=== PATIENT | male | born 1935 | race Caucasian/White ===

== ENCOUNTER 2020-04-07 07:49 | Emergency (ER) | payer MEDICARE, SELFPAY ==
--- NOTE | ~2020-04-07 | XR_ITS ---
EXAMINATION: XR knee RT min 4V DATE: 04/07/2020 08:34 INDICATION: Right knee pain TECHNIQUE: Four views of the right knee were obtained. COMPARISON: None. FINDINGS: Alignment is normal. No fracture or osteochondral lesion. There is mild tricompartmental os teoarthritis characterized by tiny marginal osteophytes. A moderate size knee joint effusion is prese nt. Soft tissues are unremarkable. IMPRESSION: 1. No acute osseous abnormality. Reviewed, dictated and finalized at location A. ING MACHINE OPERATOR
--- NOTE | ~2020-04-07 | CT_ITS ---
EXAMINATION: CT brain wo con INDICATION: Head injury COMPARISON: None TECHNIQUE: Standard unenhanced head CT. The dose-length product (DLP) was 605.33 mGy-cm. The mA was a djusted according to patient size. Iterative reconstruction technique was employed. FINDINGS: There is no acute intraparenchymal hemorrhage. No evidence of mass lesion. No evidence of a cute infarction. There is mild periventricular and subcortical hypodensity probably related to small vessel ischemic disease. There is mild prominence of the sulci and ventricles related to cerebral atr ophy. Intracranial calcified cerebral atherosclerosis is noted. There are no extra-axial collections. There is no mass effect or midline shift. Changes in the globes are likely from ocular lens surgery. The visualized sinuses and mastoid air cells are well aerated. IMPRESSION: 1. No acute intracranial abnormality. 2. Age related findings. Reviewed, dictated and finalized at location A. ENER
--- NOTE | ~2020-04-07 | XR_ITS ---
EXAMINATION: XR elbow RT min 3V INDICATION: Right elbow pain TECHNIQUE: Four views of the right elbow are obtained. 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 No fracture is identified. Bone alignment is normal. IMPRESSION: 1. No acute osseous abnormality. Reviewed, dictated and finalized at location A. TATION ENGINEER
--- NOTE | ~2020-04-07 | CT_ITS ---
EXAMINATION: CT cervical spine wo con DATE: 04/07/2020 08:48 INDICATION: Head injury TECHNIQUE: Computed tomography (CT) of the cervical spine was performed without intravenous contrast. The dose-length product (DLP) was 455.29 mGy-cm. Automated exposure control and iterative reconstruc tion technique were employed. COMPARISON: None FINDINGS: There is no fracture. There are 2 mm of retrolisthesis of C4 on C5 and 2 mm of anterolisthe sis of C6 on C7. The vertebral body heights are maintained. There is advanced loss of intervertebral disc space height from C3-4 through C5-6. The odontoid is intact. Small degenerative osteophytes proj ect from the anterior endplates of multiple vertebral bodies. 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 There are small lucencies in the odontoid and multiple vertebral garrett dies which likely relate to osteoarthritis. IMPRESSION: 1. Severe cervical spondylosis without acute osseous abnormality. Reviewed, dictated and finalized at location A. E GOODS APPLIANCE TECH
--- NOTE | ~2020-04-07 | XR_ITS ---
EXAMINATION: XR hip BI 2V w AP pelvis DATE: 04/07/2020 08:34 INDICATION: Pain after fall TECHNIQUE: AP view the pelvis and two views of each hip were obtained. COMPARISON: None. FINDINGS: Bone alignment is normal. There is no fracture. Surgical changes are noted in the left pelv is. There is calcified atherosclerosis. Mild hip osteoarthritis is noted. IMPRESSION: 1. No acute osseous abnormality. Reviewed, dictated and finalized at location A. ROL PANEL BUILDER
--- NOTE | ~2020-04-07 | CT_ITS ---
EXAMINATION: CT pelvis wo con DATE: 04/07/2020 09:43 INDICATION: Right hip pain after fall TECHNIQUE: Computed tomography (CT) of the pelvis was performed without intravenous contrast. The dos e-length product (DLP) was 294.77 mGy-cm. Automated exposure control and iterative reconstruction tariq hnique were employed. COMPARISON: None FINDINGS: There is a subtle nondisplaced fracture involving the lower left sacrum. No additional acut e osseous abnormality is identified. There is mild osteoarthritis of the hips. There are surgical jass nges of left inguinal hernia repair. There is calcified atherosclerosis of the aorta and many of the other arteries. No pathologically enlarged pelvic lymph nodes are identified. IMPRESSION: 1. Subtle nondisplaced fracture involving the lower left sacrum. Reviewed, dictated and finalized at location A. ATRIC SOCIAL WORKER
[2020-04-07 07:52] VITALS: BP 124/58; PULSE 65; RESP 16; TEMP 36.2; O2SAT 98
--- NOTE | 2020-04-07 08:10 | ED.FALL ---
HPI - Fall General Chief Complaint: Fall Stated Complaint: Fall yesterday, R hhip pain Time Seen by Provider: 04/07/20 07:55 Source: patient and family Mode of arrival: ambulatory Limitations: dementia History of Present Illness HPI Narrative: This patient is an 84 year old male with history of dementia who presents for evaluation of right hip pain s/p fall. His daughter states he was walking down steps when he lost his footing . He fell off the stairs at the 4th step, and she states he fell onto his right hip . She also reports he hit his head but she denies LOC. She reports they have been giving him tramadol so he denies headache currently. Patient has been ambulating with a limp since the fall. He has an abrasion to right elbow and right knee. He reports mild neck pain but his daughter reports he has chronic neck pain. She denies any other pain. complaint: fall Related Data Home Medications Medication Instructions Recorded Confirmed donepezil 5 mg tablet 5 mg PO ONCE 03/19/20 03/19/20 quetiapine 25 mg tablet 25 mg PO BID 03/19/20 03/19/20 Allergies Allergy/AdvReac Type Severity Reaction Status Date / Time No Known Allergies Allergy Unverified 03/19/20 15:10 Review of Systems Review of Systems: All systems reviewed & are unremarkable except as noted in HPI and below Constitutional: Constitutional: Denies chills and Denies fever(s) Eyes: Eyes: Denies change in vision Cardiovascular: Cardiovascular: Denies chest pain and Denies radiating jaw, neck or arm pain Respiratory: Respiratory: Denies cough and Denies dyspnea Musculoskeletal: Musculoskeletal: Reports arthralgias Neurologic: Denies headache(s), Denies focal weakness and Denies numbness [facility] Past Medical History Medical History (Updated 04/07/20 @ 10:34 by Samantha Mariano MD) Memory changes 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 Moved to daughter's house 03/2020. Daughter, Breana is POA, HCPOA. Smoking status: Never smoker Alcohol intake: current Exam Const: General: no acute distress and alert Orientation/consciousness: patient oriented x3 HENMT: Head: normocephalic and scalp tenderness Face and sinus: face symmetric Eyes: EOM: EOMs intact bilaterally Neck: Neck: no lymphadenopathy Chest: Chest palpation & inspection: normal inspection of the chest and no tenderness Resp: Effort & Inspection: normal respiratory effort and no retractions Auscultation: clear to auscultation bilaterally Cardio: Rate: regular rate Rhythm: regular rhythm Heart sounds: no murmurs GI: GI Palp: Yes Soft to palpation, No Tenderness to palpation present (GI), No Guarding due to palpation present (GI), No Rigid due to palpation and No Hernia present Skin: Other: small scab to right elbow with out swelling. Small abrasion to right knee Neuro: General: patient oriented x3 and moves all extremities Extrem: Other: FROM of all extremities. Pain with ROM of right hip, left hip tenderness with palpation Course Reevaluation(s) Reevaluation #1: Patient having limp on ambulation attempt. Family is agreeable to CT pelvis to rule out occult fracture. Date: 04/07/20 Time: 09:27 Reevaluation #2: I discussed with patient and daughter about CT findings. PAtient lives Date: 04/07/20 Time: 10:25 Consultations Consultation #1: I Discussed CT with Dr. Walden. He recommends patient to get walker and a wheel chair with 2 person assist with transfers. HE would like to see patient within 2 weeks. He recommends scheduled tylenol arthritis. Date: 04/07/20 Time
[2020-04-07 10:13] VITALS: BP 140/68; PULSE 59; RESP 12; O2SAT 99
[2020-04-07] MEDS: ACETAMINOPHEN 500 MG TABLET 1000 MG PO (10:37)
== END 2020-04-07 11:07 | disposition home or self-care (01) ==
PROVIDERS: Emergency Provider General Practice; PCP Nurse Practitioner Family
DX: S32.110A Nondisplaced Zone I fracture of sacrum, initial encounter for closed fracture (principal); S50.311A Abrasion of right elbow, initial encounter; S09.90XA Unspecified injury of head, initial encounter; G30.9 Alzheimer's disease, unspecified; F02.81 Dementia in other diseases classified elsewhere, unspecified severity, with behavioral disturbance; M47.812 Spondylosis without myelopathy or radiculopathy, cervical region; W10.9XXA Fall (on) (from) unspecified stairs and steps, initial encounter
CPT/HCPCS: 70450; 72125; 72192; 73080; 73521; 73564; 99284; A9270